=== PATIENT | female | born 1995 | race Caucasian/White ===

== ENCOUNTER 2019-03-30 11:03 | Emergency (ER) | payer SELFPAY ==
[~2019-03-30] VITALS: Ht 165.1 cm; Wt 79.4 kg
--- NOTE | 2019-03-30 11:16 | NUR ---
ED Nurse Note: Pt came in from home due to productive cough with phlegm x 1 week, developed SANTANA since yesterday. has pain 04/25. HR 109 at triage, other VSS, SAT >95%. Pt was prescribed Levaquin, has been taking med sicne 03/28, was instructed to buy OTC coughing syrup a/w antibiotic but did not buy it. Will cont to monitor.
[2019-03-30] MEDS ORDERED: LEVOFLOXACIN500 MG ORAL (11:20)
--- NOTE | 2019-03-30 11:42 | Emergency Room Report ---
History of Present Illness General Chief Complaint: Upper Respiratory Illness Present Illness HPI Disclaimer: Please note that this report is being documented using [employer] technology. This can lead to erroneous entry secondary to incorrect interpretation by the dictating instrument. HPI: 23-year-old female with a history of ADHD, on oral contraceptives, presents for evaluation of headache, URI symptoms. Patient states she has had a frontal and occipital headache over the past week but acutely worsened 2 days ago. States it is now constant, throbbing causing visual changes, photosensitivity, photophobia. 2 days ago she was seen at urgent care diagnosed with bronchitis and a right otitis media. She was started on levofloxacin states she is compliant with medications. States that over the past 2 days the headache has become severe. She continues to have a dry, nonproductive cough, sinus pressure that is worsening, sore throat and diffuse myalgias and arthralgias. Denies rash, diarrhea, dysuria, hematuria. PMH: ADHD PSH: Denies Allergies: No medication allergies Social Hx: Denies drug, alcohol or tobacco use Allergies: Coded Allergies: Cultivated Oat Pollen (Verified Allergy, Unknown, 03/30/19) Patient History Last Menstrual Period: 03/30/19 currently on her peroid Now: No Review of Systems All Other Systems: negative except mentioned in HPI Physical Exam Vital Signs Date Time Temp Pulse Resp B/P (MAP) Pulse Ox O2 Delivery O2 Flow Rate FiO2 03/30/19 11:08 99.1 109 16 130/76 (94) 95 Room Air General: Awake and alert, no acute distress HEENT: NC/AT. EOMI. pupils are 5 mm, reactive bilaterally. No nystagmus. Visual florence are full. No lid lag, symmetrical facial expressions. There is tenderness palpation over the frontal and maxillary sinuses. Right tympanic membrane is slightly opacified but not significantly bulging. Left tympanic membrane is hyperemic but otherwise clear landmarks, nonbulging, no effusions were seen on either side. Pharynx is erythematous but no exudate Neck: Supple, trachea midline, mild tenderness and anterior lymphadenopathy Cardiovascular: RRR. S1 and S2 normal. No murmur appreciated Resp: Normal work of breathing. No cough, wheezing or crackles appreciated Abdomen: Abdomen is soft, obese, nondistended. Nontender Skin: Intact. No abrasions, laceration or rash over the exposed skin MSK: Normal tone and bulk. Moving all extremities. No obvious deformity. Neuro: Awake and alert. Mentating appropriately. Visual florence are full. No nystagmus. Symmetrical facial expressions. There is no ataxia. Ambulating without difficulty. Medical Decision Making ER Course 23-year-old female presents for evaluation of worsening headache, myalgias, upper respiratory illness for approximately 1 week. Differential includes but is not limited to URI, bronchitis, otitis media, viral syndrome, migraine headache, tension headache, subarachnoid, central venous thrombosis, idiopathic intercranial hypertension. Will obtain a CT scan of the head, labs treat with Tylenol, IV fluids Laboratory Tests Test 03/30/19 11:50 03/30/19 11:59 White Blood Count 7.3 K/UL (4.8-10.8) Red Blood Count 4.49 M/UL (4.20-5.40) Hemoglobin 13.9 G/DL (12.0-16.0) Hematocrit 39.6 % (37.0-47.0) Mean Corpuscular Volume 88 FL (80-99) Mean Corpuscular Hemoglobin 31.1 PG (27.0-31.0) H Mean Corpuscular Hemoglobin Concent 35.2 G/DL (32.0-36.0) Red Cell Distribution Width 10.5 % (11.6-14.8) L Platelet Count 274 K/UL (150-450) Mean Platelet Volume 6.1 FL (6.5-10.1) L Neutrophils (%) (Auto) 73.2 % (45.0-75.0) Lymphocytes (%) (Auto) 18.7 % (20.0-45.0) L Monocytes (%) (Auto) 7.7 % (1.0-10.0) Eosinophils (%) (Auto) 0.1 % (0.0-3.0) Basophils (%) (Auto) 0.3 % (0.0-2.0) Sodium Level 137 MMOL/L (136-145) Potassium Level 4.5 MMOL/L (3.5-5.1) Chloride Level 101 MMOL/L (98-107) Carbon Dioxide Level 28 MMOL/L (21-32) Anion Gap 8 mmol/L (5-15) Blood Urea Nitrogen 8 mg/dL (7-18) Creatinine 0.7 MG/DL (0.55-1.30) Estimat Glomerular Filtration Rate > 60 mL/min (>60) Glucose Level 127 MG/DL (74-106) H Calcium Level 9.7 MG/DL (8.5-10.1) Total Bilirubin 0.3 MG/DL (0.2-1.0) Aspartate Amino Transf (AST/SGOT) 17 U/L (15-37) Alanine Aminotransferase (ALT/SGPT) 27 U/L (12-78) Alkaline Phosphatase 60 U/L (46-116) Total Protein 8.3 G/DL (6.4-8.2) H Albumin 3.4 G/DL (3.4-5.0) Globulin 4.9 g/dL Albumin/Globulin Ratio 0.7 (1.0-2.7) L Urine Color Pale yellow Urine Appearance Clear Urine pH 6 (4.5-8.0) Urine Specific [place] 1.010 (1.005-1.035) Urine Protein Negative (NEGATIVE) Urine Glucose (UA) Negative (NEGATIVE) Urine Ketones 3+ (NEGATIVE) H Urine Blood Negative (NEGATIVE) Urine Nitrite Negative (NEGATIVE) Urine Bilirubin Negative (NEGATIVE) Urine Urobilinogen Normal MG/DL (0.0-1.0) Urine Leukocyte Esterase Negative (NEGATIVE) Urine HCG, Qualitative Negative (NEGATIVE) Reevaluation Time: 14:54 Last Vital Signs Date Time Temp Pulse Resp B/P (MAP) Pulse Ox O2 Delivery O2 Flow Rate FiO2 03/30/19 11:20 109 16 Room Air 03/30/19 11:08 99.1 130/76 (94) 95 Status: improved Reevaluation Impression CT scan shows a right mastoid effusion and some sphenoid's 5 sinus thickening consistent with an upper respiratory infection however there is no evidence of intercranial bleed or mass-effect. The patient stated that she wished to go home to get more rest and that she was feeling improved after IV fluids, Toradol , Reglan and Benadryl in addition to the Tylenol she received earlier. She has no focal neurologic deficits and likely this is a viral syndrome that should resolve in the next few days. She can be discharged home to follow-up with her PMD or 1 of the clinics listed in her discharge paperwork. We discussed reasons to return to the emergency department; she understands and agrees with this treatment plan. Disposition: HOME, SELF-CARE Condition: Improved Cullen Long MD Mar 30, 2019 11:42
[2019-03-30] MEDS ORDERED: Acetaminophen 500mg (ES) tab ORAL ONE (11:45)
--- NOTE | 2019-03-30 12:25 | NUR ---
ED Nurse Note: Went down for CT.
[2019-03-30 12:27] LABS: ANION GAP 8 mmol/L (5-15); BLOOD UREA NITROGEN 8 mg/dL (7-18); CALCIUM 9.7 MG/DL (8.5-10.1); CARBON DIOXIDE 28 MMOL/L (21-32); CHLORIDE 101 MMOL/L (98-107); CREATININE 0.7 MG/DL (0.55-1.30); POTASSIUM 4.5 MMOL/L (3.5-5.1); SODIUM 137 MMOL/L (136-145)
[2019-03-30 12:28] LABS: BASOPHILS % (AUTO) 0.3 % (0.0-2.0); EOSINOPHILS % (AUTO) 0.1 % (0.0-3.0); HEMATOCRIT 39.6 % (37.0-47.0); HEMOGLOBIN 13.9 G/DL (12.0-16.0); LYMPHOCYTES % (AUTO) 18.7 % (20.0-45.0); MEAN CORPUSCULAR VOLUME 88 FL (80-99); MONOCYTES % (AUTO) 7.7 % (1.0-10.0); NEUTROPHILS % (AUTO) 73.2 % (45.0-75.0); PLATELET COUNT 274 K/UL (150-450); RED BLOOD COUNT 4.49 M/UL (4.20-5.40); RED CELL DISTRIBUTION WIDTH 10.5 % (11.6-14.8); WHITE BLOOD COUNT 7.3 K/UL (4.8-10.8)
[2019-03-30 12:29] LABS: APPEARANCE,URINE CLEAR; BILIRUBIN, URINE NEGATIVE (NEGATIVE); COLOR,URINE PALE YELLOW; GLUCOSE, URINE (UA) NEGATIVE (NEGATIVE); KETONES,URINE 3+ (NEGATIVE); LEUKOCYTE ESTERASE ,URINE NEGATIVE (NEGATIVE); NITRITE,URINE NEGATIVE (NEGATIVE); PH,URINE 6 (4.5-8.0); PROTEIN,URINE NEGATIVE (NEGATIVE); UROBILINOGEN,URINE NORMAL MG/DL (0.0-1.0)
[2019-03-30 12:32] LABS: ALANINE AMINOTRANSFERASE 27 U/L (12-78); ALBUMIN 3.4 G/DL (3.4-5.0); ALBUMIN/GLOBULIN RATIO 0.7 (1.0-2.7); ALKALINE PHOSPHATASE 60 U/L (46-116); ASPARTATE AMINO TRANSFERASE 17 U/L (15-37); BILIRUBIN,TOTAL 0.3 MG/DL (0.2-1.0)
--- NOTE | 2019-03-30 12:48 | NUR ---
ED Nurse Note: Came back from CT.
--- NOTE | 2019-03-30 12:48 | Diagnostic Imaging Report ---
Indications: Headache Technique: Spiral acquisitions obtained through the brain. Angled axial and coronal 5 x 5 mm slices were reconstructed. Total dose length product 1312.75 mGycm. CTDI vol(s) 70.38 mGy. Dose reduction achieved using automated exposure control Comparison: None. Findings: No acute intracranial hemorrhage or edema, mass effect, nor midline shift. Normal godfrey-white differentiation. Normal size ventricles and extra axial CSF spaces. Intact calvarium. Visualized orbits are unremarkable. There is minimal sphenoid sinus disease. There is opacification of several right mastoid air cells. Impression: Negative for acute intracranial bleed or mass effect Right mastoid effusion Minimal sphenoid sinus mucosal thickening The CT scanner at [facility] is accredited by the [employer] and the scans are performed using protocols designed to limit radiation exposure to as low as reasonably achievable to attain images of sufficient resolution adequate for diagnostic evaluation.
[2019-03-30 13:20] VITALS: BP 113/66
[2019-03-30] MEDS ORDERED: Metoclopramide 10mg/2ml Inj IVP ONE (13:45)
[2019-03-30] MEDS ORDERED: Ketorolac 30mg Inj IV ONE (13:45)
[2019-03-30 15:00] VITALS: BP 120/70
[2019-03-30 15:05] VITALS: BP 120/70
--- NOTE | 2019-03-30 15:05 | NUR ---
ED Nurse Note: Pt cleared by ERMD for discharge. DC instructions was given and explained to pt and verbalized understanding of teachings. All medical deviecs such as ID band and IV line removed. Pt is AAO x4, ambulatory and left with all personal belongings.
== END 2019-03-30 15:05 | disposition home or self-care (01) ==
LOC: EMR 11:35
DX: R51 Headache (principal); J34.89 Other specified disorders of nose and nasal sinuses; M79.10 Myalgia, unspecified site; Z91.018 Allergy to other foods; F90.9 Attention-deficit hyperactivity disorder, unspecified type
CPT/HCPCS: 36415; 70450; 80053; 81003; 81025; 85025; 96361; 96374; 96375; 99284; J1885; J2765

== ENCOUNTER 2019-04-03 12:29 | Emergency (ER) | payer SELFPAY ==
[~2019-04-03] VITALS: Ht 165.1 cm; Wt 77.1 kg
[~2019-04-03 12:29] MED LIST: LEVOFLOXACIN500 MG ORAL
[2019-04-03 12:36] VITALS: BP 129/90
[2019-04-03] MEDS ORDERED: Metoclopramide 10mg/2ml Inj IVP ONE (13:00)
[2019-04-03] MEDS ORDERED: Morphine Sulfate 4mg/ml Inj (IV USE ONLY) IVP ONE (13:00)
[2019-04-03] MEDS ORDERED: Dexamethasone 4mg/ml vial IVP ONE (13:00)
[2019-04-03 14:05] LABS: BASOPHILS % (AUTO) 0.9 % (0.0-2.0); EOSINOPHILS % (AUTO) 0.7 % (0.0-3.0); HEMATOCRIT 42.1 % (37.0-47.0); HEMOGLOBIN 14.7 G/DL (12.0-16.0); LYMPHOCYTES % (AUTO) 31.8 % (20.0-45.0); MEAN CORPUSCULAR VOLUME 88 FL (80-99); MONOCYTES % (AUTO) 7.6 % (1.0-10.0); PLATELET COUNT 261 K/UL (150-450); RED BLOOD COUNT 4.81 M/UL (4.20-5.40); RED CELL DISTRIBUTION WIDTH 10.3 % (11.6-14.8); WHITE BLOOD COUNT 5.7 K/UL (4.8-10.8)
--- NOTE | 2019-04-03 14:10 | Emergency Room Report ---
History of Present Illness General Chief Complaint: Dizziness Source: Patient Present Illness HPI 23-year-old female with no significant past medical history here complaining of 1 week 10 out of 10 headache, fever, neck stiffness, and photophobia. Patient was seen at [facility] on March 30, 2019, head CT scan was done and was unremarkable. Patient was discharged with URI symptoms. Patient was seen in urgent care prior to arrival to [facility] few days ago and was diagnosed with right otitis media and bronchitis and was prescribed Levaquin. Patient reports that she finished her antibiotics however has no improvement. Reports that she has been having multiple bouts of nonbloody emesis and dizziness. Patient also feels confused. Denies abdominal pain, however complains of a 2 bouts of nonbloody diarrhea x1 day. Denies recent travel, and living in a dormitory. Patient is sitting comfortably however in mild distress and tachycardic. Has full range of motion of her neck. No fever noted. Denies urinary symptoms, and all other associated symptoms. Denies head injury. Denies syncope. Denies drug use, tobacco smoke, alcohol intake. Allergies: Coded Allergies: Cultivated Oat Pollen (Verified Allergy, Unknown, 03/30/19) Patient History Past Medical History: see triage record Past Surgical History: unable to obtain Pertinent Family History: none Last Menstrual Period: 03/30/2019 Now: No Immunizations: UTD Reviewed Nursing Documentation: PMH: Agreed; PSxH: Agreed Nursing Documentation-PMH Past Medical History: No History, Except For Review of Systems All Other Systems: negative except mentioned in HPI Physical Exam Vital Signs Date Time Temp Pulse Resp B/P (MAP) Pulse Ox O2 Delivery O2 Flow Rate FiO2 04/03/19 12:36 99.0 140 20 129/90 99 Room Air Sp02 EP Interpretation: abnormal - Elevated heart rate General Appearance: alert, GCS 15, non-toxic, mild distress Head: normocephalic, atraumatic Eyes: bilateral eye normal inspection, bilateral eye PERRL ENT: hearing grossly normal, normal pharynx, no angioedema, normal voice, TMs + canals normal Neck: full range of motion, no meningismus, supple/symm/no masses Respiratory: chest non-tender, lungs clear, normal breath sounds, no respiratory distress, no wheezing, speaking full sentences Cardiovascular #1: normal peripheral pulses, regular rate, rhythm, no edema, no murmur, normal capillary refill Cardiovascular #2: 2+ carotid (R), 2+ carotid (L) Gastrointestinal: normal bowel sounds, non tender, soft, non-distended, no guarding, no rebound Genitourinary: normal inspection, no CVA tenderness Musculoskeletal: back normal, gait/station normal, normal range of motion, non- tender Neurologic: alert, oriented x3, responsive, motor strength/tone normal, sensory intact, speech normal Psychiatric: judgement/insight normal, memory normal, mood/affect normal, no suicidal/homicidal ideation Skin: no rash, normal turgor, other - No petechiae noted Lymphatic: no adenopathy Procedures Lumbar Puncture Consent: Verbal Location: L3-L4 Anesthesia: 1% Lidocaine Volume Anesthetic (ccs): 10 Prep: bedadine Needle Size: 1 1/2 CSF: clear Post-Procedure: recumbent position Attempts: Other - 3 Complications: none Patient Tolerated: Well Medical Decision Making PA Attestation All diagnoses and treatment plans were reviewed and discussed with my supervising physician Dr. Franco Diagnostic Impression: Primary Impression: Systemic viral illness ER Course 23-year-old female with no significant past medical history here complaining of 1 week 10 out of 10 headache, fever, neck stiffness, and photophobia. Patient was seen at [facility] on March 30, 2019, head CT scan was done and was unremarkable. Patient was discharged with URI symptoms. Patient was seen in urgent care prior to arrival to [facility] few days ago and was diagnosed with right otitis media and bronchitis and was prescribed Levaquin. Patient reports that she finished her antibiotics however has no improvement. Reports that she has been having multiple bouts of nonbloody emesis and dizziness. Patient also feels confused. Denies abdominal pain, however complains of a 2 bouts of nonbloody diarrhea x1 day. Denies recent travel, and living in a dormitory. Patient is sitting comfortably however in mild distress and tachycardic. Has full range of motion of her neck. No fever noted. Denies urinary symptoms, and all other associated symptoms. Denies head injury. Denies syncope. Denies drug use, tobacco smoke, alcohol intake. Ddx considered but are not limited to: strep pharyngitis, URI, tonsillitis, peritonsillar abscess, influneza, bacterial meningitis, viral meningitis Vital signs: are WNL, pt. is afebrile H&PE are most consistent with: Systemic viral illness, ORDERS: Sepsis work-up, lumbar puncture, Zofran, ibuprofen ED INTERVENTIONS: None required at this time. Lumbar puncture( by Dr Long) , morphine, Decadron, Reglan DISCHARGE: At this time pt. is stable for d/c to home. Will provide printed patient care instructions, and any necessary prescriptions. Care plan and follow up instructions have been discussed with the patient prior to discharge. EKG Diagnostic Results Rate: tachycardiac Rhythm: other ST Segments: no acute changes Chest X-Ray Diagnostic Results Chest X-Ray Diagnostic Results : Chest X-Ray Ordered: Yes # of Views/Limited/Complete: 1 View Indication: Other EP Interpretation: Yes PA Xray: Interpretation reviewed, by supervising MD, and agrees with findings. Interpretation: no consolidation, no effusion, no pneumothorax Impression: No acute disease Electronically Signed by: sammy england PA-C CT/MRI/US Diagnostic Results CT/MRI/US Diagnostic Results : Imaging Test Ordered: head CT no contrast Impression WNL Last Vital Signs Date Time Temp Pulse Resp B/P (MAP) Pulse Ox O2 Delivery O2 Flow Rate FiO2 04/03/19 12:36 140 20 Room Air 04/03/19 12:36 99.0 129/90 (103) 99 Disposition: HOME, SELF-CARE Condition: Stable Referrals: NOT CHOSEN IPA/,REFERRING (PCP) Patient Instructions: Nausea and Vomiting, Adult, [id number], Viral Respiratory Infection, [id number] Additional Instructions: Take medication as directed, rest and hydrate, follow-up with your primary care provider. At this time no meningitis is noted based on your lumbar puncture. Sammy Webber Apr 03, 2019 14:10
--- NOTE | 2019-04-03 14:15 | Diagnostic Imaging Report ---
Indications: Dizziness, stiff neck, neck pain x3-4 days, vomiting, headache Technique: Spiral acquisitions obtained through the brain. Angled axial and coronal 5 x 5 mm slices were reconstructed. Total dose length product 1281 mGycm. CTDI vol(s) 70 mGy. Dose reduction achieved using automated exposure control Comparison: None. Findings: No acute intracranial hemorrhage or edema. No mass effect nor midline shift. Normal godfrey-white differentiation. Normal size ventricles and extra axial CSF spaces. Visualized orbits and sinuses are unremarkable. Intact calvarium. There is mastoid disease on the right. The sinuses are clear. Visualized orbits are unremarkable Impression: Negative for acute intracranial bleed or mass effect Incidental finding of right-sided mastoid effusion. The CT scanner at [facility] is accredited by the [employer] and the scans are performed using protocols designed to limit radiation exposure to as low as reasonably achievable to attain images of sufficient resolution adequate for diagnostic evaluation.
[2019-04-03 14:21] LABS: ANION GAP 11 mmol/L (5-15); BLOOD UREA NITROGEN 12 mg/dL (7-18); CALCIUM 9.7 MG/DL (8.5-10.1); CARBON DIOXIDE 25 MMOL/L (21-32); CHLORIDE 106 MMOL/L (98-107); CREATININE 0.8 MG/DL (0.55-1.30); POTASSIUM 4.7 MMOL/L (3.5-5.1); SODIUM 142 MMOL/L (136-145)
[2019-04-03 14:34] LABS: ALANINE AMINOTRANSFERASE 30 U/L (12-78); ALBUMIN 3.8 G/DL (3.4-5.0); ALBUMIN/GLOBULIN RATIO 0.8 (1.0-2.7); ALKALINE PHOSPHATASE 63 U/L (46-116); ASPARTATE AMINO TRANSFERASE 30 U/L (15-37); BILIRUBIN,TOTAL 0.6 MG/DL (0.2-1.0); CKMB 0.5 NG/ML (0.0-3.6); CREATINE KINASE 72 U/L (26-308)
--- NOTE | 2019-04-03 14:45 | Diagnostic Imaging Report ---
Indication: Chest pain Technique: One view of the chest Comparison: none Findings: Lungs and pleural spaces are clear. Heart size is normal. Impression: No acute process
[2019-04-03 15:14] VITALS: BP 139/89
[2019-04-03] MEDS ORDERED: VYVANSE20 MG ORAL (15:53)
[2019-04-03] MEDS ORDERED: Lidocaine 1% Plain 30 ml INJ ONE ×2 (16:02→16:45)
--- NOTE | 2019-04-03 16:34 | Emergency Room Report ---
Physical Exam Vital Signs Date Time Temp Pulse Resp B/P (MAP) Pulse Ox O2 Delivery O2 Flow Rate FiO2 04/03/19 12:36 99.0 140 20 129/90 99 Room Air Medical Decision Making Diagnostic Impression: Primary Impression: Headache ER Course Briefly, this a 23-year-old female who presented to the emergency department with headache. She was seen by me several days ago treated as a migraine after a negative CT scan. She returned today complaining of some increased confusion in the morning so she has been taking Unisom to sleep and feeling extra groggy. She was tachycardic and a septic work-up and repeat head CT was performed. We performed a lumbar puncture which showed lymphocytosis, fewer than 100 white cells, no neutrophils. Patient tolerated lumbar puncture well and she was neurologically and vascularly intact at the start and end of the procedure. Likely, this is a viral syndrome however the patient's headache was treated, she is awake, alert, and tachycardia is resolved. She was given strict return precautions and counseled on the need for follow-up. She understands and agrees with treatment plan was discharged home. Last Vital Signs Date Time Temp Pulse Resp B/P (MAP) Pulse Ox O2 Delivery O2 Flow Rate FiO2 04/03/19 15:14 98.7 95 21 139/89 98 Room Air Disposition: HOME, SELF-CARE Condition: Improved Scripts Ibuprofen* (MOTRIN*) 600 Mg Tablet 600 MG ORAL Q8H PRN for For Pain, #30 TAB 0 Refills Prov: Sammy Webber 04/03/19 Ondansetron (Zofran) 4 Mg Tablet 4 MG ORAL Q6H PRN for Nausea & Vomiting, #12 TAB Prov: Sammy Webber 04/03/19 Referrals: NOT CHOSEN IPA/,REFERRING (PCP) Procedures Lumbar Puncture Consent: Written Location: L4-L5 Anesthesia: 1% Lidocaine Prep: bedadine CSF: clear Post-Procedure: recumbent position Attempts: Other - 2 Complications: none Patient Tolerated: Well Cullen Long MD Apr 03, 2019 16:34
[2019-04-03] MEDS ORDERED: ZOFRAN4 M1 ORAL (18:38)
[2019-04-03] MEDS ORDERED: IBUPROFEN600 MG ORAL (18:38)
[2019-04-03 19:00] VITALS: BP 140/86
--- NOTE | 2019-04-04 11:04 | Cardiology Report ---
APPROVED REPORT EKG Measurement Heart [id number] Sinus tachycardia Possible Left atrial enlargement Nonspecific ST and T wave abnormality Abnormal ECG
== END 2019-04-03 19:00 | disposition home or self-care (01) ==
LOC: EMR 12:55
DX: B34.9 Viral infection, unspecified (principal); R51 Headache; D72.820 Lymphocytosis (symptomatic); R41.0 Disorientation, unspecified; R00.0 Tachycardia, unspecified; Z01.818 Encounter for other preprocedural examination
CPT/HCPCS: 36415; 62270; 70450; 71045; 80053; 82550; 82553; 82945; 83605; 84157; 84484; 85025; 85610; 85730; 86592; 86850; 86900; 86901; 87040; 87070; 87205; 89051; 93005; 96361; 96374; 96375; 99284; J1100; J2001; J2270; J2765